=== PATIENT | female | born 1990 | race Caucasian/White ===

== ENCOUNTER 2017-11-08 11:01 | Inpatient (IN) | payer OTHER ==
[~2017-11-08] VITALS: Ht 165.1 cm; Wt 78.0 kg
[~2017-11-08 11:01] MED LIST: CLAD PO; DOXY-179 PO; LOR5/325 PO; MED150I IM; METR-1 PO; ONDA4TAB PO
[2017-11-12] MEDS ORDERED: LR(*) 1000 ML BAG 1,000 ML IV PRN (20:21)
[2017-11-12 21:04] VITALS: BP 136/82; Ht 165.1 cm; Wt 78.0 kg
[2017-11-12] MEDS ORDERED: BUPIVACAINE 0.25% MPF INJ EPI PRN (22:10)
[2017-11-12] MEDS ORDERED: EPIDURAL KEYS XX PRN (22:10)
[2017-11-12] MEDS ORDERED: FENTANYL/ROPIVACAINE 100 ML BAG EPI PRN (22:10)
[2017-11-12] MEDS ORDERED: fentaNYL CITR 100 MCG/2 ML AMP IT PRN (22:10)
[2017-11-12] MEDS ORDERED: LIDOCAINE/PF 2% 200MG/10ML AMP 200 MG/10 ML AMPUL EPI PRN (22:10)
[2017-11-12] MEDS ORDERED: BUPIVACAINE 0.5% INJ 30ML VIAL EPI PRN (22:10)
[2017-11-12] MEDS ORDERED: LIDO/EPI 2% MPF 1:200,000 20ML EPI PRN (22:10)
[2017-11-12] MEDS ORDERED: ePHEDrine 25 MG/5 ML DISP.SYR IVP PRN (22:10)
[2017-11-12] MEDS ORDERED: ceFAZolin(*) 2GM/D5W 50ML 50 ML IVPB PRN (22:12)
[2017-11-12] MEDS ORDERED: FAMOTIDINE(*) 20MG/50ML PREMIX 50 ML IVPB PRN (22:12)
[2017-11-12] MEDS ORDERED: OXYTOCIN 30 UNIT/NS 500 ML 500 ML IV PRN (22:12)
[2017-11-12] MEDS ORDERED: fentaNYL CITR 100 MCG/2 ML AMP IVP PRN (22:15)
[2017-11-12] MEDS ORDERED: LIDOCAINE/SOD BICARB 8.4% SYR SC PRN (22:15)
[2017-11-12] MEDS ORDERED: FLUSH 10 ML SYR IVP PRN (22:15)
[2017-11-12] MEDS ORDERED: METOCLOPRAMIDE 10 MG/2 ML SDV IVP PRN (22:15)
[2017-11-12] MEDS ORDERED: ONDANSETRON 4 MG/2 ML VIAL IVP PRN (22:15)
[2017-11-12] MEDS ORDERED: LIDOCAINE 1% LOCAL 300 MG/30ML INJ PRN (22:15)
[2017-11-12] MEDS ORDERED: ACETAMINOPHEN 325 MG TAB PO PRN (22:15)
[2017-11-12 23:05] LABS: PLATELET COUNT, AUTOMATED 167 K/uL (150-450)
[2017-11-12] MEDS: LR(*) 1000 ML BAG 1,000 ML IV SCH (23:59)
[2017-11-13] MEDS ORDERED: DOCO200C PO (00:09)
[2017-11-13] MEDS ORDERED: CETI10CA8 PO (00:09)
[2017-11-13] MEDS ORDERED: DOCU-416 PO (00:10)
[2017-11-13] MEDS: LR(*) 1000 ML BAG 1,000 ML IV SCH ×2 (00:23→06:05)
--- NOTE | 2017-11-13 01:48 | Anesthesia OB Pre-Anes Eval ---
History of Present Illness Anesthesia Start Date: Nov 13, 2017 Anesthesia Start Time: 00:20 OB Anesthesia Diagnosis: spontaneous labor Complications: None known EDC: Nov 08, 2017 : 1 Para: 0 Vital Signs: Vital Signs Date Time Temp Pulse Resp B/P (MAP) Pulse Ox O2 Delivery O2 Flow Rate FiO2 11/12/17 21:04 98.9 88 16 136/82 (100) 96 Room Air Pain Ratin Heart Tones: WNL Result Diagram: 11/12/17 2250 Height (Inches): 65.00 Weight (Pounds): 172 BMI Calculated: 28.62 Past Medical History Medical History: no pertinent history Surgical History: no surgical history Attended Childbirth Classes?: [facility], [facility], Attended PR MANAGER Lecture Hx Anesthesia Reactions: No Hx Family Anesthesia Reaction: No Home Meds Reported Medications Docusate Sodium (COLACE) 100 Mg Capsule, 100 MG PO, CAPSULE 11/13/17 Cetirizine Hcl (ZYRTEC) 10 Mg Capsule, 10 MG PO QDAY, CAPSULE 11/13/17 Docosahexanoic Acid ( DHA) 200 Mg Capsule, 200 MG PO, CAPSULE 11/13/17 Discontinued Reported Medications Loratadine/Pseudoephedrine (Claritin-D 12 Hr) 1 Ea Tabcr, 1 EA PO Q12H 03/24/12 Medroxyprogesterone Acetate (Depo-Provera) 150 Mg/Ml Soln, 150 MG IM 150 MG/ML 03/24/12 Allergies: Coded Allergies: No Known Drug Allergies (Unverified , 03/24/12) Anesthesia OB ROS Neurological: No migraines/headaches, No seizures, No neuropathy Eyes ROS: other (glasses) ENT: Denies Tooth caps, Denies Loose teeth, Denies Chipped teeth, Denies Dentures, Denies Bridges, Denies Retainers, Denies Veneers, Denies Implants, Denies Tongue ring Pulmonary: No asthma, No smoker (pks/day/yrs) Airway Class: ll Cardiovascular ROS: No edema, No arrhythmia GI ROS: clear liquids Last Solids Date: Nov 12, 2017 Last Solids Time: 17:00 ROS: No Herpes, No STD(s), No Liver Disease, No Renal Disease Endocrine ROS: No diabetes, No gestational diabetes, No thyroid disorder Musculoskeletal ROS: No low back pain, No low back injury, No scoliosis ASA Classification: 2 Assessment and Plan Anesthesia Plan: CSE Assessment Past Medical, Surgical, Family and Obstetric Histories reviewed. Please see ACOG chart. Epidural anesthesia risks, complications and benefits explained to patient's satisfaction for labor and vaginal delivery and/or section. General anesthesia risks and benefits explained to patient's satisfaction. Questions invited and answered. KULWANT WARE CRNA Nov 13, 2017 01:48
--- NOTE | 2017-11-13 01:55 | Procedure Note ---
Anesthetic Placement Note Anesthesia Plan: CSE Permit for Anesthesia Signed: Yes Anesthesia Technique: Patient Sitting Anesthesia Prep: Chlorhexidine Interspace: L 3-4 Local Anesthetic: 1% Lidocaine, 25 Gauge Needle Amount Local - cc's: 2 Anesthesia Needle: 17g Touhy/Schliff Anesthesia Attempts: 1 Loss of Resistance: Air Depth of LOS (cm): 4 Epidural Needle Placement: No CSF, No Blood, No Parasthesia Intrathecal Needle: 27 Gauge Pencan Cerebral Spinal Fluid: Yes, Clear Catheter Insertion (cm): 7 Catheter Type: Amndujano - Spring Wound Epidural Dressing: Tegaderm, Tape, Adhesive [place] Anesthesia Tray: Lot Number ([id number]), Expiration Date (2018-08-14), Reference Number ([id number]) Anesthesia Medications: Intrathecal Dose: mcg Fentanyl (15), mg Marcaine MPF (1.75), Time (0044) Epidural Test Dose: 1.5 Lido/Epi (1:200,000), Dose - mL (2), Time (0111), Negative Epidural Loading Dose: 0.2% Ropivicaine, With Fentanyl 2mcg/ml, Dose - ml (5), Time (0112) Epidural Infusion: 0.2% Ropivicaine, With Fentanyl 2mcg/ml, Start Time: (0112) Epidural Pump Setting: Bolus Dose - mL (5), Lockout - Minutes (20), Maintenance Rate - mL/hr (6), Maximum per Hour - mL (21) Complications: None Comment: Vital signs stable. Patient comfortable and condition stable. Mild itching noted. KULWANT WARE CRNA Nov 13, 2017 01:55
--- NOTE | 2017-11-13 01:57 | Anesthesia Progress Note ---
Progress/Maintenance Anesthesia Note Date: Nov 13, 2017 Anesthesia Note Time: 01:55 Pain Intensity: 0 Pump: On Pump Rate (ML/HR): 6 Sensory Level: T-12 Motor Level: Bending Knees-Bilateral Dilatation: 5 Position: Right, Tilt Assessment and Plan Assessment Remains comfortable. Does not feel contractions. Nausea and emesis. BP stable. Encouraged to rest. KULWANT WARE CRNA Nov 13, 2017 01:57
--- NOTE | 2017-11-13 06:45 | History & Physical ---
History of Present Illness Age of Patient: 27 : 1 Para or TPAL: 0 EDC per LMP: Nov 08, 2017 EDC per U/S: Nov 08, 2017 Estimated Gestational Age: 40.5 Chief Complaint Contractions: History of Present Illness Pt is a 27 y/o @ 40-5/7 weeks gestation who presents to L&D with a chief complaint of painful contractions. Pt reports contractions starting since 11/12 mid morning. Pt reports no loss of amniotic fluid. No vaginal bleeding. Contractions now 2-3 minutes apart. History Patient's Blood Type: A Positive Rubella Status: Non-Immune Group B Strep Screen: Negative Obstetrical History: Primigravid Past Medical History: Hay fever History of Mole removal Allergies: Coded Allergies: No Known Drug Allergies (Unverified , 03/24/12) Social History: Denies alcohol, tobacco, or recreational drugs. Med Rec Home Meds Reported Medications Docusate Sodium (COLACE) 100 Mg Capsule, 100 MG PO, CAPSULE 11/13/17 Cetirizine Hcl (ZYRTEC) 10 Mg Capsule, 10 MG PO QDAY, CAPSULE 11/13/17 Docosahexanoic Acid ( DHA) 200 Mg Capsule, 200 MG PO, CAPSULE 11/13/17 Discontinued Reported Medications Loratadine/Pseudoephedrine (Claritin-D 12 Hr) 1 Ea Tabcr, 1 EA PO Q12H 03/24/12 Medroxyprogesterone Acetate (Depo-Provera) 150 Mg/Ml Soln, 150 MG IM 150 MG/ML 03/24/12 Review of Systems All Systems Reviewed/Normal: Yes, Except as Noted Constitutional: No Fever, No Weight Loss, No Weight Gain, No Chills, No Night Sweats, No Other Neurological: No Syncope, No Confusion, No Weakness, No Dizziness, No Slurred Speech, No Other Eyes: No Vision Change, No Loss of Vision, No Photophobia, No Other ENT: No Hearing Loss, No Sinus Congestion, No Sore Throat, No Ear Ache, No Tinnitus, No Other Cardiovascular: No Chest Pain, No Palpitations, No Orthostatic Hypotension, No Other Respiratory: No Shortness of Breath, No Cough, No Wheezing, No Other Gastrointestinal: No Nausea, No Vomiting, No Diarrhea, No Dysphagia, No Constipation, No Early Satiety, No Hematemesis, No Hematochezia, No Melena, No Abdominal Pain, No Other Genitourinary: No Dysuria, No Hematuria, No Urinary Incontinence, No Other Musculoskeletal: No Pain, No Sprain, No Strain, No Impaired Mobility, No Other Psychiatric: No Depression, No Anxiety, No Other Exam General Exam Vital Signs Vital Signs Date Time Temp Pulse Resp B/P (MAP) Pulse Ox O2 Delivery O2 Flow Rate FiO2 11/12/17 21:04 98.9 88 16 136/82 (100) 96 Room Air General Apperance: Alert/Awake/No Acute Distress Neuro: No Gross deficits Eyes: Normal Extraocular Movement & Vison, PERRLA ENT: Normal Cardiovascular: Regular Rate and Rhythm Respiratory: No Respiratory Distress, Clear to Auscultation Abdomen: Soft, Non-Tender, Non-Distended : Normal Musculoskeletal: No Weakness/Pain Extremities: No Cyanosis,Clubbing or Edema Integumentary: Skin Intact without Lesions or Rash Psychological: Alert & Oriented X3, Appropriate Mood & Affect Vaginal Discharge/Fluid?: Clear Fluid (srom) Cervical Dialation: 9 Cervical Effacement (%): 100 Cervical Consistency: Soft Cervical Position: Anterior Station: -1 Presentation: Vertex Uterine Contractions(Q min): 4 Uterine Contraction Strength: Moderate UC Resting Tone: Soft Fetus Feeling Movement?: Yes Estimated Weight(grams): 3400 Heart Tones: 140 Heart Tone Variabilty: Moderate FHT Accelerations: 15X15 FHT Decelerations: None Medical Decision Making Data Points Result Diagram: 11/12/17 2250 Pre-Admit Course Medical Record Review: Yes VTE Prophylasis: Adult Deep Vein Thrombosis/Pulmonary: No Assessment and Plan AVIATION SAFETY TECHNICIAN Assessment: Stable AVIATION SAFETY TECHNICIAN Plan: Routine Labor/Induct Care Problems: (1) 40 weeks gestation of (2) Active labor at term Assessment & Plan: Pt s/p epidural. Now anterior lip. Expect . (3) Spontaneous rupture of amniotic membranes JENNIFER MALIK DO Nov 13, 2017 06:44
--- NOTE | 2017-11-13 07:32 | Anesthesia Progress Note ---
Progress/Maintenance Anesthesia Note Date: Nov 13, 2017 Anesthesia Note Time: 06:45 Pain Intensity: 2 Pump: On Pump Rate (ML/HR): 6 Sensory Level: T-12 Motor Level: Bending Knees-Bilateral Dilatation: 9 Position: Left, Tilt Assessment and Plan Assessment States she feels "pressure", rates it as "2". No problems noted. KULWANT WARE CRNA Nov 13, 2017 07:32
[2017-11-13] MEDS ORDERED: METHYLERGONOVINE MAL 0.2MG/ML ONE (08:20)
[2017-11-13] MEDS ORDERED: LANOLIN OINT 7 GM TUBE TP PRN (09:55)
[2017-11-13] MEDS ORDERED: ACETAMINOPHEN 325 MG TAB PO PRN (09:55)
[2017-11-13] MEDS ORDERED: HYDROmorphone HCL 2 MG TAB PO PRN (09:55)
[2017-11-13] MEDS ORDERED: MAGNESIUM HYDROXIDE* 30ML UDCP PO PRN (09:55)
[2017-11-13] MEDS ORDERED: GLYCERIN/WITCH HAZEL LEAF 1 PK TP PRN (09:55)
[2017-11-13] MEDS ORDERED: BENZOCAINE 20% 60 ML BTL TP PRN (09:55)
[2017-11-13] MEDS ORDERED: HYDROCORTISONE 2.5% CR 30GM TB PR PRN (09:55)
--- NOTE | 2017-11-13 10:00 | OB Delivery Note ---
Delivery Note Vaginal Delivery Type: Spont. Vaginal Delivery Delivery Date: Nov 13, 2017 Delivery Time: 09:32 Estimated Gestational Age(wks): 40.5 Delivery Anesthesia: Epidural Sex: Female Infant Weight (gms): 3198 Apgars: 1 Minute (9), 5 Minute (9) Repair Needed: Laceration, Superficial, Vaginal Estimated Blood Loss: 350 Notes: SPONTANEOUS LABOR, RECEIVED EPIDURAL, SROM, PROGRESSED TO COMPLETE, PUSHED EFFECTIVELY, LATER MECONIUM STAINED FLUID NOTED. DELIVERED OVER INTACT PERINEUM. OROPHARYNX AND NASOPHARYNX BULB SUCTIONED. PASSED TO [facility] WHERE DR CHAVES IN ATTENDANCE FOR DELIVERY. SUPERFICIAL VAGINAL LACERATION REPAIRED WITH 3-0 VICRYL. Legal Office Administrator in Attendence: Yes Copies to: ISHMAEL VILLEGAS MD, JOHN MD Nov 13, 2017 10:00
[2017-11-13] MEDS ORDERED: HYDR2TAB4 PO (10:01)
[2017-11-13] MEDS ORDERED: IBUP800T37 PO (10:01)
--- NOTE | 2017-11-13 10:05 | OB/GYN Discharge Summary ---
Discharge Summary Reason for Hosp/Final Diag: (1) 40 weeks gestation of Status: Resolved (2) Active labor at term Status: Resolved (3) Spontaneous rupture of amniotic membranes Hospital Course & Plan: Spontaneous labor, delivered vaginally, on day 1, Pain controlled, Tolerating diet and activity. Baby . Normal lochia. (4) care following vaginal delivery Lates Vital Signs Vital Signs Date Time Temp Pulse Resp B/P (MAP) Pulse Ox O2 Delivery O2 Flow Rate FiO2 11/12/17 21:04 98.9 88 16 136/82 (100) 96 Room Air Weight (Pounds): 172 Result Diagram: 11/12/17 0320 Condition: Improved Discharge: Home, Self Detention Meds Active Scripts Ibuprofen (IBUPROFEN) 800 Mg Tablet, 1 TAB PO Q8H, #30 TAB 0 Refills Take with food every 8 hours. Prov:ISHMAEL PRUETT MD 11/13/17 Hydromorphone Hcl (HYDROMORPHONE HCL) 2 Mg Tablet, 2-4 MG PO Q4H for PAIN, #20 TAB 0 Refills Prov:ISHMAEL PRUETT MD 11/13/17 Reported Medications Docusate Sodium (COLACE) 100 Mg Capsule, 100 MG PO, CAPSULE 11/13/17 Cetirizine Hcl (ZYRTEC) 10 Mg Capsule, 10 MG PO QDAY, CAPSULE 11/13/17 Docosahexanoic Acid ( DHA) 200 Mg Capsule, 200 MG PO, CAPSULE 11/13/17 Discontinued Reported Medications Loratadine/Pseudoephedrine (Claritin-D 12 Hr) 1 Ea Tabcr, 1 EA PO Q12H 03/24/12 Medroxyprogesterone Acetate (Depo-Provera) 150 Mg/Ml Soln, 150 MG IM 150 MG/ML 03/24/12 Follow up with: Dr. Pruett [phone] Follow up in: 6 wks PP or PO Discharge Diet: As Tolerates Discharge Activity: Pelvic Rest Copies to: ISHMAEL PRUETT MD, JOHN MD Nov 13, 2017 10:05
--- NOTE | 2017-11-13 10:31 | Anesthesia Progress Note ---
Progress/Maintenance Anesthesia Note Date: Nov 13, 2017 Anesthesia Note Time: 09:40 Pain Intensity: 2 Pump: Off Motor Level: Bending Knees-Bilateral Position: Semi-Fowlers Drug Bolus: 0.5% Marcaine (5 ml), Other (Fentenyl 85 mcgs) Assessment and Plan Anesthesia Plan: CSE Assessment Manual bolus (of Fentenyl 50 mcgs and 2 ml of 0.5% Marcaine) given at 0810 as pt. is laboring down. Medication did provide relief to her back discomfort and feeling of Pressure. Additional bolus of Fenteny 35 mcgs and 3 ml ),5% Marcaine given as pt. was . Excellent tolerance of delivery and repair work. Pt. was able to push very well. Empty syringe attached to epidural syringe and RN agrees to remove with first ambulation. Patient instructed the first ambulation is to be with help of nursing staff. Instructed to preform deep knee bends at bedside before walking. Anesthesia Stop Day: Nov 13, 2017 Anesthesia Stop Time: 09:40 Epidural Catheter Removal: KULWANT Ovalle CRNA Nov 13, 2017 10:31
[2017-11-13] MEDS ORDERED: IBUPROFEN 800 MG TAB PO SCH (12:00)
[2017-11-13 13:28] VITALS: BP 132/70
[2017-11-13 16:43] VITALS: BP 122/56
[2017-11-13 19:20] VITALS: BP 108/60
[2017-11-13] MEDS: DOCUSATE CALCIUM 240 MG CAP PO SCH (21:00)
[2017-11-13] MEDS: IBUPROFEN 800 MG TAB PO SCH (21:01)
[2017-11-13 23:45] VITALS: BP 114/57
[2017-11-14 03:00] VITALS: BP 102/62
[2017-11-14] MEDS: IBUPROFEN 800 MG TAB PO SCH ×2 (03:57→12:01)
[2017-11-14 07:45] VITALS: BP 110/57
--- NOTE | 2017-11-14 08:35 | OB/GYN Progress Note ---
OB Subjective Progress Notes Subjective Pain controlled, Tolerating diet and activity. Baby . Normal lochia. GI: POS Flatus, NEG Nausea, NEG Vomiting : Voiding Well Pain: Mild OB Objective Physical Exam Vital Signs Date Time Temp Pulse Resp B/P (MAP) Pulse Ox O2 Delivery O2 Flow Rate FiO2 11/14/17 07:45 97.9 83 18 110/57 (74) 95 Room Air General Appearance: Alert/Awake/No Acute Distress Neurological: No Gross deficits Eyes: Normal Extraocular Movement & Vison, PERRLA Cardiovascular: Regular Rate and Rhythm Respiratory: No Respiratory Distress, Clear to Auscultation Abdomen: Fundus Firm Extremities: No Cyanosis,Clubbing or Edema, No Edema Integumentary: Skin Intact without Lesions or Rash Psychological: Alert & Oriented X3, Appropriate Mood & Affect Result Diagram: 11/14/17 0610 Assessment and Plan Post Day: 1 PREPPER Assessment: Stable PREPPER Plan: Discharge Home Today Problems: (1) 40 weeks gestation of Status: Resolved (2) Active labor at term Status: Resolved (3) Spontaneous rupture of amniotic membranes Assessment & Plan: Spontaneous labor, delivered vaginally, on day 1, Pain controlled, Tolerating diet and activity. Baby . Normal lochia. (4) care following vaginal delivery ISHMAEL VILLEGAS MD Nov 14, 2017 08:35
[2017-11-14] MEDS: DOCUSATE CALCIUM 240 MG CAP PO SCH (08:39)
[2017-11-14] MEDS ORDERED: INFLUENZA VIRUS VAC 0.5 ML SYR IM ONLY ONE (09:00)
[2017-11-14] MEDS ORDERED: DIPHTH/TETANUS/ACEL. PERTUSSIS IM ONLY ONE (09:00)
[2017-11-14] MEDS ORDERED: MEASLES,MUMP,RUBELLA VAC 0.5ML SUBQ ONE ×2 (09:00→14:15)
[2017-11-14] MEDS ORDERED: MULTIVITAMINS (PRENATAL) TAB PO SCH (09:00)
--- NOTE | 2017-11-14 10:37 | Anesthesia Post Eval Note ---
Anesthesia Post Eval Note Vital Signs Date Time Temp Pulse Resp B/P (MAP) Pulse Ox O2 Delivery O2 Flow Rate FiO2 11/14/17 07:45 97.9 83 18 110/57 (74) 95 Room Air Pt able to participate in Eval: Yes Cardiovascular Status: Satisfactory Respiratory Status: Satisfactory Pain Managment: Satisfactory PO Nausea/Vomiting: Satisfactory Temperature Management: Satisfactory Mental Status: Satisfactory, Alert, Oriented X3 Post-Op Hydration Status: Satisfactory, Tolerating PO Well, Voiding w/o Difficulty Anesthesia Type: CSE Anesthesia Tolerance: Tolerated procedure well without apparent anesthetic complications. LP site clear, no redness or edema. Denies headache or any residual paresthesia. Vital Signs Stable, Patient comfortable and condition stable. KULWANT WARE CRNA Nov 14, 2017 10:37
== END 2017-11-14 15:40 | disposition home or self-care (01) | DRG 775 ==
LOC: OB 11-12 20:17
PROVIDERS: ADMIT Student in an Organized Health Care Education/Training Program; ATTEND Student in an Organized Health Care Education/Training Program
PROC: 10E0XZZ Delivery of Products of Conception, External Approach (ICD-10-PCS; principal; 2017-11-12)
PROC: 0HQ9XZZ Repair Perineum Skin, External Approach (ICD-10-PCS; 2017-11-12)
DX: O77.0 Labor and delivery complicated by meconium in amniotic fluid (principal); Z37.0 Single live birth; O70.0 First degree perineal laceration during delivery; Z3A.40 40 weeks gestation of pregnancy; Z23 Encounter for immunization
CPT/HCPCS: 36415; 85025; 85027; 86850; 86900; 86901; 90471; 90707; J2405; J2590; J3010; J7120; S0020

== ENCOUNTER → 2018-12-09 | Outpatient (CLI) | payer OTHER ==
[2017-11-12 21:04] VITALS: BMI 28.6
[~2018-12-09] MED LIST changes: +AMOX-559 PO; +CETI10CA8 PO; +DICL500C66 PO; +DOCO200C PO; +DOCU-416 PO; +FLUT16SP19 NS; +HYDR2TAB4 PO; +IBUP800T37 PO; +PREN-127 PO
[2018-12-09 10:00] LABS: PLATELET COUNT, AUTOMATED 251 K/uL (150-450)
== END ==
LOC: LAB 08:19
PROVIDERS: ATTEND Obstetrics & Gynecology
DX: Z34.01 Encounter for supervision of normal first pregnancy, first trimester (principal)
CPT/HCPCS: 36415; 81001; 85025; 86592; 86703; 86762; 86850; 86900; 86901; 87088; 87340

== ENCOUNTER → 2018-12-22 | Outpatient (CLI) | payer OTHER ==
[2017-11-12 21:04] VITALS: BMI 28.6
== END ==
LOC: LAB 08:08
PROVIDERS: ATTEND Student in an Organized Health Care Education/Training Program
DX: Z34.91 Encounter for supervision of normal pregnancy, unspecified, first trimester (principal)
CPT/HCPCS: 87491; 87591

== ENCOUNTER → 2019-03-13 | Outpatient (CLI) | payer OTHER ==
[2017-11-12 21:04] VITALS: BMI 28.6
--- NOTE | 2019-03-13 15:56 | RADIOLOGY IMAGING REPORT ---
FACILITY: [facility] PATIENT NAME: Merlyn Cassidy : 1990 MR: [id number] V: [id number] EXAM DATE: ORDERING PHYSICIAN: JENNIFER MALIK TECHNOLOGIST: Location: [facility] Patient: Merlyn Cassidy : 1990 Visit/Account:[id number] Date of Sevice: 03/13/2019 EXAMINATION: Ultrasound transabdominal OB > 14 weeks with anatomic evaluation HISTORY: 20 week anatomical survey COMPARISON: None. TECHNIQUE: Transabdominal imaging was performed for assessment of the fetus and maternal pelvic structures. T ransvaginal imaging was not performed. FINDINGS: Placenta: Anterior without previa. Uterus: Gravid, otherwise normal Cervix: Long and closed. Maternal Ovaries: Not visualized. Maternal and other adnexa findings: Not visualized Intrauterine gestations: One. presentation: Cephalic heart rate: Normal and regular at 152 bpm Amniotic fluid index: 14.13 cm Largest amniotic fluid pocket: 4.21 cm Gestational Parameters: BPD: 4.85 cm 20 weeks/ five days, 89% HC: 19 cm 21 weeks/ two days, 97% AC: 15.88 cm 21 weeks/ one days, 87% FL: 3.51 cm 21 weeks/ one days, 89% Average ultrasound age (AUA): 21 weeks/one days, PINKY 07/23/2019 Estimated gestational age by PINKY: 19 weeks/four days, PINKY 08/03/2019 Estimated weight (EFW): 395 grams +/- 58 grams EFW for PINKY: Greater than 98% percentile Anatomic Survey: Intracranial structures, 4-chamber heart, stomach, kidneys, urinary bladder, spine, 3-vessel cord and cord insertion are unremarkable. Two upper and two lower extremities visualized. Cardiac ventricula r outflow tracts, palate and lips are unremarkable in appearance. IMPRESSION: Single viable fetus and cephalic presentation with an estimated gestational age by measu rements of 21 weeks and one day. Estimated gestational age by LMP is 19 weeks and four days. Estima marciano weight of 395 g is greater than the 98th percentile Report Dictated By: Dai Gonzáles MD at 03/13/2019 3:43 PM Report E-Signed By: Dai Gonzáles MD at 03/13/2019 3:52 PM WSN:[email or web address]
== END ==
LOC: RAD 10:16
PROVIDERS: ATTEND Student in an Organized Health Care Education/Training Program
DX: Z02.9 Encounter for administrative examinations, unspecified (principal)

== ENCOUNTER → 2019-05-04 | Outpatient (CLI) | payer OTHER ==
[2017-11-12 21:04] VITALS: BMI 28.6
[~2019-05-04] MED LIST changes: +DIPH0.5S2 IM
[2019-05-04 16:32] LABS: PLATELET COUNT, AUTOMATED 187 K/uL (150-450)
== END ==
LOC: LAB 08:24
PROVIDERS: ATTEND Student in an Organized Health Care Education/Training Program
DX: Z34.92 Encounter for supervision of normal pregnancy, unspecified, second trimester (principal)
CPT/HCPCS: 36415; 82950; 85025

== ENCOUNTER → 2019-06-27 | Outpatient (CLI) | payer OTHER ==
[2017-11-12 21:04] VITALS: BMI 28.6
== END ==
LOC: LAB 08:09
PROVIDERS: ATTEND Student in an Organized Health Care Education/Training Program
DX: Z36.85 Encounter for antenatal screening for Streptococcus B (principal)
CPT/HCPCS: 87081